=== PATIENT | male | born 1955 | race Caucasian/White ===

== ENCOUNTER 2019-03-19 10:40 | Outpatient (CLI) | payer OTHER ==
--- NOTE | 2019-03-19 11:10 | CT ---
EXAM: CT of the abdomen pelvis without contrast History: Mid and lower abdominal pain. Technique: Multiplanar CT images through the abdomen pelvis were obtained without the administration of IV contrast Findings: Lung bases are clear. No acute osseous abnormalities. 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 No gallstones identified by CT. Mild atherosclerotic vascular calcifications. No focal liver or spl enic lesions. No renal stones and no hydronephrosis. No peripancreatic inflammation. Adrenal gland s are unremarkable. No bladder wall thickening. Prostate is not enlarged. No perirectal inflammati on. The appendix is normal. There is moderate wall thickening of the ascending colon and transverse colon with adjacent pericolonic inflammation. No free air and no ascites. Impression: Moderate colitis involving the ascending and transverse colon. Etiology is most likely i nfectious or inflammatory.
== END 2019-03-19 10:41 | disposition home or self-care (01) ==
LOC: RAD 10:40
PROVIDERS: ATTEND Nurse Practitioner Family
DX: R10.9 Unspecified abdominal pain (principal); R19.5 Other fecal abnormalities; R14.1 Gas pain; Z12.5 Encounter for screening for malignant neoplasm of prostate
CPT/HCPCS: 36415; 80053; 82150; 83690; 85025; 86677